=== PATIENT | female | born 1975 | race Caucasian/White ===

== ENCOUNTER 2016-11-13 18:42 | Emergency (ER) | payer MEDICAID ==
[~2016-11-13] VITALS: Ht 157.5 cm; Wt 65.5 kg
[~2016-11-13 18:42] MED LIST: CHOL400C PO; FERR27TA PO; same meds
[2016-11-13 18:56] VITALS: Ht 157.5 cm; Wt 65.5 kg
[2016-11-13] MEDS ORDERED: MECLIZINE 12.5 MG TAB PO ONE (21:00)
[2016-11-13 21:05] LABS: URINE BLOOD (Dip) POC 2+ (NEGATIVE)
--- NOTE | 2016-11-13 21:17 | RADRPT ---
PROCEDURE: XR Chest. CLINICAL INDICATION: Cough. TECHNIQUE: Portable AP semi erect view of the chest was obtained. COMPARISON: 10/13/2011 FINDINGS: The cardiomediastinal silhouette is within normal limits. The lungs are clear. There is no evidenc e for pleural effusion, pneumothorax or pulmonary vascular congestion. The osseous structures are i ntact with no evidence for acute abnormality. RPTAT:HJJR IMPRESSION: No evidence for acute intrathoracic pathology or interval change from 10/13/2011. Physician Giovana Date Time Electronically viewed and signed by Bharat Watkins Physician on 11/13/2016 21:16 JR/
[2016-11-13] MEDS ORDERED: NPH10OT LEFT EAR (22:01)
[2016-11-13] MEDS ORDERED: BENZ100C70 PO (22:01)
[2016-11-13] MEDS ORDERED: MECL12.574 PO (22:01)
--- NOTE | 2016-11-13 23:18 | ERD ---
ER Documentation Chief Complaint Date/Time DATE: 11/13/16 TIME: 23:14 Chief Complaint L ear pain. cough, slight ST and dizziness HPI 41-year-old female with a past medical history of vertigo presents to the ED complaining of left ear pain, slight sore throat, dizziness that feels like needles in her ear. Reports that she has had a dry cough for the last 2 weeks. Patient states that her dizziness is worsened with positional movements. States that she is currently not taking any medications for her vertigo. Denies any chest pain, shortness of breath, abdominal pain, nausea, vomiting, diarrhea, weakness, numbness or tingling. Reports that she is currently on her menses. Denies any drug use, smoking, alcohol use. ROS All systems reviewed and are negative except as per history of present illness. Medications Home Meds Active Scripts Benzonatate* (Tessalon Perle*) 100 Mg Capsule, 100 MG PO Q8H Y for COUGH, #20 CAP Prov:JIM MANCILLA PA-C 11/13/16 Neomycin/Polymyxin/Hydrocort* (Cortisporin* Otic) 10 Ml Susp, 4 DROP LEFT EAR QID for 7 Days, EA Prov:JIM MANCILLA PA-C 11/13/16 Meclizine Hcl* (Antivert*) 12.5 Mg Tab, 12.5 MG PO Q6H Y for DIZZINESS, #20 TAB Prov:JIM MANCILLA PA-C 11/13/16 Reported Medications [same meds] No Conflict Check 06/27/12 Ergocalciferol (Vitamin D) 400 Unit Capsule, PO DAILY 03/19/12 Ferrous Sulfate (Iron) 1 Tab Tablet, PO BID 03/19/12 Allergies Allergies: Coded Allergies: No Known Drug Allergy (Verified Allergy, Unknown, 11/05/12) PMhx/Soc Medical and Surgical Hx: pt denies Medical Hx History of Surgery: Yes (c/section x 2) Anesthesia Reaction: No Hx Neurological Disorder: No Hx Respiratory Disorders: No Hx Cardiac Disorders: No Hx Psychiatric Problems: No Hx Miscellaneous Medical Probl: Yes (ANEMIA) Hx Alcohol Use: No Hx Substance Use: No Hx Tobacco Use: No Smoking Status: Never smoker Physical Exam Vitals Vital Signs Date Time Temp Pulse Resp B/P Pulse Ox O2 Delivery O2 Flow Rate FiO2 11/13/16 18:56 98.2 59 20 152/62 95 Physical Exam Const: Lak-[id number]-[id number], well-nourished. In no acute distress. Head: Atraumatic, normocephalic Eyes: Normal Conjunctiva without injection. No purulent discharge. PERRLA. EOMI ENT: Normal external ear. Ear canal without erythema. Tympanic membrane pearly pinon without effusion or bulging. Nasal canal clear with normal turbinates. Moist oropharynx without tonsillar exudates. Non-erythematous pharynx. Uvula midline. No drooling. No trismus. Neck: No cervical midline tenderness. Full range of motion. No meningismus. No cervical lymphadenopathy. No JVD. Resp: Clear to auscultation bilaterally. No wheezing, rhonchi, rales, or crackles. No accessory muscle use. No retractions. Cardio: Regular rate and rhythm. No murmurs, rubs or gallops. Abd: Soft, non tender, non distended. Normal bowel sounds. No palpable masses. No rebound tenderness. No guarding. Negative McBurney's Point. Negative Greco's Sign. Skin: Normal skin turgor. No petechiae or rashes Back: No midline tenderness. No CVA tenderness. Ext: No cyanosis, or edema. Distal pulses intact bilaterally. Neur: Awake and alert. Normal gait. Normal coordination. Cranial Nerves II- VII intact. Normal finger to nose. Muscle strength 5/5. Sensation intact. Psych: Normal Mood and Affect Results 24 hrs Laboratory Tests Test 11/13/16 21:08 Bedside Urine Blood 2+ Bedside Urine Glucose (UA) 0.1% Bedside Urine Ketones (LAB) Trace Bedside Urine Leukocyte Esterase (L Negative Bedside Urine Nitrite (LAB) Negative Bedside Urine Protein (LAB) 1+ Bedside Urine pH (LAB) 7.0 Current Medications Medications (Trade) Dose Ordered Sig/Skylar Route PRN Reason Start Time Stop Time Status Last Admin Dose Admin Meclizine HCl (Antivert) 12.5 mg ONCE ONCE PO 11/13/16 21:00 11/13/16 21:01 DC 11/13/16 21:25 Procedures/MDM This is a 41-year-old female with a past medical history of vertigo presents the ED complaining of left ear pain, cough, slight sore throat, dizziness. Patient is afebrile nontoxic appearing. Patient reports that her dizziness is positional. Patient was treated here in the ED with meclizine with improvement of her symptoms. A urine dip, urine , chest x-ray was ordered to further evaluate patient. Patient has tenderness to the left tragus. Patient likely has otitis externa of the left ear. Patient's bilateral tympanic membranes are pearly pinon with no signs of erythema or bulging. Patient does not have tenderness to palpation of mastoid. Low suspicion for otitis media or mastoiditis. Patient's physical exam include lungs which were clear to auscultation and a normal pulse oximetry. Patient is speaking in full sentences. There is a low suspicion for pneumonia, epiglottitis, croup, viral/ strep pharyngitis, sinusitis, peritonsillar abscess, retropharyngeal abscess, meningitis, sepsis, acute abdomen or other emergent conditions. PROCEDURE: XR Chest. CLINICAL INDICATION: Cough. TECHNIQUE: Portable AP semi erect view of the chest was obtained. COMPARISON: 10/13/2011 FINDINGS: The cardiomediastinal silhouette is within normal limits. The lungs are clear. There is no evidence for pleural effusion, pneumothorax or pulmonary vascular congestion. The osseous structures are intact with no evidence for acute abnormality. RPTAT:HJJR IMPRESSION: No evidence for acute intrathoracic pathology or interval change from 2011. This patient presents to the ED with symptoms consistent with a viral acute upper respiratory infection. Patient is afebrile and has normal vital signs. Patient's physical exam include lungs which were clear to auscultation and a normal pulse oximetry. There is a low suspicion for pneumonia, pneumothorax, pulmonary embolism, epiglottitis, otitis media, otitis externa, viral/strep pharyngitis, sinusitis, peritonsillar abscess, mastoiditis, retropharyngeal abscess, meningitis, sepsis, acute abdomen or other emergent conditions. Fluids , rest, and symptomatic treatment are recommended for the management of patient' s symptoms. Patient's dizziness is likely due to her vertigo. There is improvement with meclizine. Low suspicion for anemia, hypoglycemia, dehydration acute myocardial infarction, pneumothorax, pneumonia, cardiac tamponade, pulmonary embolism, pleural effusion, AAA, aortic dissection, Boerhaave's syndrome, cardiac dysrhythmias,meningitis, intracranial bleed, seizure, stroke, TIA or other emergent conditions. Discharge medications: Meclizine, Cortisporin, Tessalon Perles Patient was instructed to return to the ED for any new or worsening symptoms. They should otherwise follow up with the primary care provider within 1-2 days. The patient's questions were answered at the time of discharge. Patient understood and agreed with discharge management. Departure Diagnosis: Primary Impression: Positional vertigo Laterality: left Qualified Code: H81.12 - Positional vertigo, left Additional Impressions: Otitis externa Otitis externa type: unspecified type Laterality: left Chronicity: unspecified Qualified Code: H60.92 - Otitis externa of left ear, unspecified chronicity, unspecified type Viral syndrome Condition: Stable Patient Instructions: Inner Ear Problems: Causes of Dizziness (Vertigo), Viral Syndrome (Adult), External Ear Infection (Adult) Referrals: COMMUNITY CLINICS YOU HAVE RECEIVED A MEDICAL SCREENING EXAM AND THE RESULTS INDICATE THAT YOU DO NOT HAVE A CONDITION THAT REQUIRES URGENT TREATMENT IN THE EMERGENCY DEPARTMENT. FURTHER EVALUATION AND TREATMENT OF YOUR CONDITION CAN WAIT UNTIL YOU ARE SEEN IN YOUR DOCTORS OFFICE WITHIN THE NEXT 1-2 DAYS. IT IS YOUR RESPONSIBILITY TO MAKE AN APPOINTMENT FOR FOLOW-UP CARE. IF YOU HAVE A PRIMARY DOCTOR --you should call your primary doctor and schedule an appointment IF YOU DO NOT HAVE A PRIMARY DOCTOR YOU CAN CALL OUR PHYSICIAN REFERRAL HOTLINE AT IF YOU CAN NOT AFFORD TO SEE A PHYSICIAN YOU CAN CHOSE FROM THE FOLLOWING [facility] [address] [facility]. [facility] [address] [facility] [address] [facility] [address] [facility]. [facility] [address] [facility]. [facility]. [address] [facility] YOU HAVE RECEIVED A MEDICAL SCREENING EXAM AND THE RESULTS INDICATE THAT YOU DO NOT HAVE A CONDITION THAT REQUIRES URGENT TREATMENT IN THE EMERGENCY DEPARTMENT. FURTHER EVALUATION AND TREATMENT OF YOUR CONDITION CAN WAIT UNTIL YOU ARE SEEN IN YOUR DOCTORS OFFICE WITHIN THE NEXT 1-2 DAYS. IT IS YOUR RESPONSIBILITY TO MAKE AN APPOINTMENT FOR FOLOW-UP CARE. IF YOU HAVE A PRIMARY DOCTOR --you should call your primary doctor and schedule and appointment IF YOU DO NOT HAVE A PRIMARY DOCTOR YOU CAN CALL OUR PHYSICIAN REFERRAL HOTLINE AT . IF YOU CAN NOT AFFORD TO SEE A PHYSICIAN YOU CAN CHOSE FROM THE FOLLOWING [facility] INSTITUTIONS: [facility] [address] [place] [address] [facility] [address] [place], [place] [id number] [place] [address] [address] [place] [address] [facility] Additional Instructions: Visite a gomes jose hendrix para un EXAMEN.Regrese a estas instalaciones si no se mejora ulises esperbamos o ulises le dijimos. JIM MANCILLA PA-C Nov 13, 2016 23:18
== END 2016-11-13 22:16 | disposition home or self-care (01) ==
LOC: FTE 18:42
DX: H81.12 Benign paroxysmal vertigo, left ear (principal); H60.392 Other infective otitis externa, left ear; B34.9 Viral infection, unspecified; R05 Cough
CPT/HCPCS: 71010; 81003; Z7502; Z7610

== ENCOUNTER 2017-04-19 11:08 | Emergency (ER) | payer MEDICAID ==
[~2017-04-19] VITALS: Ht 162.6 cm; Wt 68.0 kg
[~2017-04-19 11:08] MED LIST changes: +BENZ100C70 PO; +MECL12.574 PO; +NPH10OT LEFT EAR
[2017-04-19 11:09] VITALS: Ht 162.6 cm; Wt 68.0 kg
--- NOTE | 2017-04-19 13:17 | RADRPT ---
PROCEDURE: US Carotids. CLINICAL INDICATION: Facial swelling TECHNIQUE: Multiple sonographic images of the carotid bifurcation region and vertebral arteries wer e obtained utilizing pinon scale, duplex and color-flow imaging. COMPARISON: None available FINDINGS: RIGHT CAROTID MEASUREMENTS: PSV (cm/s) Common Carotid Artery 73 Internal Carotid Artery - proximal 79 Internal Carotid Artery - mid 93 Internal Carotid Artery - distal 106 External Carotid Artery 79 Vertebral Artery 54 PSVR (ICA/CCA) 1.4 LEFT CAROTID MEASUREMENTS: PSV (cm/s) Common Carotid Artery 104 Internal Carotid Artery - proximal 49 Internal Carotid Artery - mid 73 Internal Carotid Artery - distal 73 External Carotid Artery 72 Vertebral Artery 51 PSVR (ICA/CCA) 0.7 No plaque is visualized. There is antegrade flow within the vertebral arteries bilaterally. Validated velocity measurements with angiographic measurements, velocity criteria are extrapolated f rom diameter data as defined by the Society of Radiologists in Ultrasound Consensus Conference Radio logy 2003; 229; 340 - 346. This study does indirectly reference the measurement of the distal analytics intern al carotid artery diameter as the denominator for stenosis measurement. IMPRESSION: 1. No evidence for hemodynamically significant carotid artery stenosis. 2. Antegrade flow in the vertebral arteries bilaterally. RPTAT: EE .Matti Chong MD, Date Time Electronically viewed and signed by .Matti Chong MD, on 04/19/2017 13:17 .O/
--- NOTE | 2017-04-19 13:33 | RADRPT ---
PROCEDURE: Right upper extremity venous ultrasound CLINICAL INDICATION: Right arm pain and swelling, deep venous thrombosis TECHNIQUE: Jeronimo scale, color doppler, spectral doppler ultrasound imaging of the venous system of the right upper extremity. Augmentation maneuvers were utilized. COMPARISON: No prior studies are available for comparison. FINDINGS: RIGHT: Internal jugular vein: Patent. Subclavian vein: Patent. Axillary vein: Patent. Brachial vein: Patent. Basilic vein: Patent. Cephalic vein: Patent. Radial vein: Patent. Ulnar vein: Patent. IMPRESSION: No evidence of a deep vein thrombosis involving the right upper extremity. RPTAT: AADD .Cristian Nuñez MD, MD Date Time Electronically viewed and signed by .Cristian Nuñez MD, on 04/19/2017 13:33 .B/
[2017-04-19] MEDS ORDERED: ACET325T33 PO (13:52)
--- NOTE | 2017-04-19 14:03 | ERA ---
ER Documentation Chief Complaint Date/Time DATE: 04/19/17 TIME: 13:54 Chief Complaint L. eye pain/swelling x 2 months HPI This is a 41-year-old female presented with a chief complaint of 1 month of facial swelling on the right side. Patient states that there has been pain associated with the right eye 1 day. Describes the pain is dull and 3 out of 10. Denies discharge, right eye, changes in vision, headache, shortness of breath, chest pain or fever. Patient has no other complaints and describes no other associated manifestations. ROS All systems reviewed and are negative except as per history of present illness. Medications Home Meds Active Scripts Acetaminophen* (Tylenol*) 325 Mg Tablet, 1 TAB PO Q6 Y for PAIN AND OR ELEVATED TEMP, #20 TAB Prov:UZAIR HERNANDEZ PA-C 04/19/17 Benzonatate* (Tessalon Perle*) 100 Mg Capsule, 100 MG PO Q8H Y for COUGH, #20 CAP Prov:JIM MANCILLA PA-C 11/13/16 Neomycin/Polymyxin/Hydrocort* (Cortisporin* Otic) 10 Ml Susp, 4 DROP LEFT EAR QID for 7 Days, EA Prov:JIM MANCILLA PA-C 11/13/16 Meclizine Hcl* (Antivert*) 12.5 Mg Tab, 12.5 MG PO Q6H Y for DIZZINESS, #20 TAB Prov:JIM MANCILLA PA-C 11/13/16 Reported Medications [same meds] No Conflict Check 06/27/12 Ergocalciferol (Vitamin D) 400 Unit Capsule, PO DAILY 03/19/12 Ferrous Sulfate (Iron) 1 Tab Tablet, PO BID 03/19/12 Allergies Allergies: Coded Allergies: No Known Drug Allergy (Verified Allergy, Unknown, 04/19/17) PMhx/Soc History of Surgery: Yes (c/section x 2) Anesthesia Reaction: No Hx Neurological Disorder: No Hx Respiratory Disorders: No Hx Cardiac Disorders: No Hx Psychiatric Problems: No Hx Miscellaneous Medical Probl: Yes (ANEMIA) Hx Alcohol Use: No Hx Substance Use: No Hx Tobacco Use: No Smoking Status: Never smoker Physical Exam Vitals Vital Signs Date Time Temp Pulse Resp B/P Pulse Ox O2 Delivery O2 Flow Rate FiO2 04/19/17 11:09 98.1 73 16 135/61 97 Physical Exam Const: Overweight 41-year-old female in no acute distress Head: Normocephalic, Atraumatic. Eyes: Mild periorbital swelling of the right eye. Non-injected; No discharge or foreign body. EOMI without pain and SHAUN bilaterally. Ears: Normal External Ears, EACs clear, TM normal bilaterally without erythema. Nose: Normal external nose; no discharge, septal deviation, or sinus tenderness. Oral: No oral edema visualized. Mucous membranes moist and pink. Neck: Symmetrical goiter palpated. Pulsations palpated on the right side anterior to the SCM. No cervical lymphadenopathy. Trachea midline. Supple ~ No meningismus. Pulm: Good air movement in upper and lower respiratory tracts. No dyspnea, stridor, tripoding or drooling. Clear to auscultation bilaterally. Cardio: Regularly irregular rhythm; No murmurs, gallops or rubs auscultated. Radial and posterior tibial pulses 2+ bilaterally. No cyanosis. Capillary refill less than 2 seconds. Abd: Soft, non tender, non distended. No guarding, masses. Normal bowel sounds. No McBurney's point tenderness. MS: Normal motor strength, normal tone with gross examination. Skin: No petechiae or rashes. No ulcer, induration, jaundice. Good turgor. Back: No midline, flank or CVA tenderness. Ext: No edema or palpable cord. Normal movement of all extremities grossly observed. Neur: Awake, alert and oriented x3. Neurovascularly intact bilaterally. Psych: Normal Mood and Affect. Procedures/MDM 41-year-old female with 1 month of facial swelling and 1 day of pain in the right eye. Patient also has a pulsating neck. Heart was irregularly irregular to auscultation. EKG was obtained read by I spoke with my attending as regularly irregular with PVCs but otherwise unremarkable. I have read the EKG myself and agree with his findings along with good baseline, no ST elevations or depressions, normal access and no T-wave inversions. And he agrees with the assessment and plan. Patient's condition has improved since arrival. Vital signs are stable. Patient will be discharged at this time with discharge instructions and return precautions. Ultrasound was taken to rule out subclavian pathologies and of the carotids. Ultrasounds were read by the radiologist given the following impressions: 1. No evidence for hemodynamically significant carotid artery stenosis. 2. Antegrade flow in the vertebral arteries bilaterally. No evidence of a deep vein thrombosis involving the right upper extremity. At this time a little suspicion for subclavian obstruction, carotid obstruction , ACS, nerve impingement, bacterial involvement/infection or other acute pathologies. Patient has been recommended to follow-up with her PCP for further evaluation and possible referral to a specialist. Her vitals are stable and her current condition is appropriate for discharge. Patient will be discharged with discharge instructions return precautions. Departure Diagnosis: Primary Impression: Right facial swelling Additional Impression: Facial swelling Condition: Stable Additional Instructions: Raymundo un seguimiento con gomes PCP dentro de los prximos 1-3 rizo para vivi evaluaci n ms completa y vivi posible derivacin a un especialista. Devuelva el departamento de emergencia inmediatamente si los sntomas empeoran o cambian. Si tiene alguna pregunta con respecto a los medicamentos, consulte con gomes farmac utico o con nosotros antes de salir. Si se producen reacciones adversas mientras akanksha maximo medicamentos, suspenda el tratamiento y regrese inmediatamente al servicio de urgencias. Filley maximo medicamentos segn las indicaciones y complete el curso completo del tratamiento. UZAIR HERNANDEZ PA-C Apr 19, 2017 14:03
== END 2017-04-19 13:57 | disposition home or self-care (01) ==
LOC: FTE 11:08
DX: R22.0 Localized swelling, mass and lump, head (principal); R94.31 Abnormal electrocardiogram [ECG] [EKG]
CPT/HCPCS: 93005; 93880; 93971; Z7502